=== PATIENT | male | born 1965 | race American Indian/Alaskan Native ===

== ENCOUNTER 2019-01-24 20:32 | Emergency (ER) | payer SELFPAY ==
[2019-01-24 20:39] VITALS: BMI 24.3
[2019-01-24 20:49] VITALS: RESP 18; TEMP 98.3
--- NOTE | 2019-01-24 21:08 | ED PDOC ---
Arrival/HPI - General Chief Complaint: Substance Abuse Time Seen by Provider: 01/24/19 20:33 Historian: EMS - History of Present Illness Narrative History of Present Illness (Text): 01/24/19 20:50 Vic Meredith is a 53 year old male, whose past medical history includes diabetes, who presents to the emergency department brought in by EMS for substance abuse. As per EMS, patient was found outside, states patient has a history of substance abuse and possibly used PCP this evening. Patient refusing to answer questions. Limited HPI and ROS secondary to patient's altered mental status. Symptom Onset: Gradual Symptom Course: Unchanged Activities at Onset: Light Context: Street Past Medical History - Provider Review Nursing Documentation Reviewed: Yes - Psychiatric Hx Substance Use: Yes Family/Social History - Physician Review Nursing Documentation Reviewed: Yes Family/Social History: Unknown Family HX Smoking Status: Unknown If Ever Smoked Hx Alcohol Use: Yes Hx Substance Use: Yes Allergies/Home Meds Allergies/Adverse Reactions: Allergies No Known Allergies Allergy (Verified 01/24/19 20:40) Home Medications: Home Meds Medication Instructions Recorded Confirmed Unobtainable 01/25/19 01/25/19 Review of Systems - Review of Systems Systems not reviewed;Unavailable: Altered Mental Status Physical Exam Vital Signs Reviewed: Yes Vital Signs Temp Pulse Resp BP Pulse Ox 01/24/19 20:48 98.3 F 90 18 133/78 98 Temperature: Afebrile Blood Pressure: Normal Pulse: Regular Respiratory Rate: Normal Appearance: Positive for: Well-Appearing, Non-Toxic, Comfortable Pain Distress: None Finger Stick Blood Glucose: 94 - Systems Exam Head: Present: Atraumatic, Normocephalic Pupils: Present: PERRL Extroacular Muscles: Present: EOMI Conjunctiva: Present: Normal Mouth: Present: Moist Mucous Membranes Neck: Present: Normal Range of Motion Respiratory/Chest: Present: Clear to Auscultation, Good Air Exchange. No: Respiratory Distress, Accessory Muscle Use Cardiovascular: Present: Regular Rate and Rhythm, Normal S1, S2. No: Murmurs Abdomen: No: Tenderness, Distention, Peritoneal Signs Back: Present: Normal Inspection Upper Extremity: Present: Normal Inspection. No: Cyanosis, Edema Lower Extremity: Present: Normal Inspection. No: Edema Neurological: Present: GCS=15, CN II-XII Intact, Speech Normal Skin: Present: Warm, Dry, Normal Color. No: Rashes Medical Decision Making ED Course and Treatment: 01/24/19 20:50 Impression: 53 year old male brought in for possible substance abuse. Plan: -- EKG -- Labs, alcohol level -- Urinalysis, urine drug screen -- Reassess and disposition Prior Visits: Notes and results from previous visits were reviewed. Progress Notes: 01/24/19 21:20 Pt uncooperative with staff, becoming agitated. Code Howe called. Pt placed in 4 points and Ativan ordered. 01/24/19 23:22 Reviewed EKG, NSR at [address] Non-specific ST/T wave changes. - RAD Interpretation Radiology Orders: 01/24/19 20:59 HEAD W/O CONTRAST [CT] Stat - Scribe Statement The provider has reviewed the documentation as recorded by the Scribmonica Craig Provider Scribe Attestation: All medical record entries made by the Scribe were at my direction and personally dictated by me. I have reviewed the chart and agree that the record accurately reflects my personal performance of the history, physical exam, medical decision making, and the department course for this patient. I have also personally directed, reviewed, and agree with the discharge instructions and disposition. Disposition/Present on Arrival - Present on Arrival Any Indicators Present on Arrival: No History of DVT/PE: No History of Uncontrolled Diabetes: No Urinary Catheter: No History of Decub. Ulcer: No History Surgical Site Infection Following: None - Disposition Have Diagnosis and Disposition been Completed?: Yes Diagnosis: Substance abuse Disposition: HOME/ ROUTINE Disposition Time: 06:35 Patient Problems: Current Active Problems Problem Status Onset Substance abuse Acute Condition: GOOD Discharge Instructions (ExitCare): Drug Abuse and Drug Addiction (DC) Forms: [employer] ([place])
[2019-01-24 23:26] LABS: BASO # 0.02 K/mm3 (0.0-2.0); BASO % 0.5 % (0.0-3.0); EOS # 0.1 (0.0-0.7); EOS % 1.3 % (1.5-5.0); HEMOGLOBIN 11.5 g/dL (14.0-18.0); LYMPH # 0.8 (1.2-3.4); LYMPH % 20.8 % (22.0-35.0); MEAN CELL VOLUME 83.3 fl (80.0-105.0); MEAN CORPUSCULAR HEMOGLOBIN 28.6 pg (25.0-35.0); MEAN CORPUSCULAR HGB CONC 34.3 g/dl (31.0-37.0); MEAN PLATELET VOLUME 10.3 fl (7.0-11.0); MONO # 0.6 (0.1-0.6); RBC 4.02 10^6/uL (3.5-6.1); RED CELL DISTRIBUTION WIDTH 13.5 % (11.5-14.5); WHITE BLOOD COUNT 3.9 10^3/uL (4.5-11.0)
[2019-01-24 23:35] LABS: ACETAMINOPHEN < 10.0 ug/ml (10.0-20.0); SALICYLATE < 1 mg/dL (2.0-20.0)
[2019-01-24 23:36] LABS: ALB/GLOB RATIO 1.1 (1.1-1.8); ALT/SGPT 14 U/L (7-56); AST/SGOT 23 U/L (17-59); BLOOD UREA NITROGEN 12 mg/dL (7-21); CALCIUM 9.1 mg/dL (8.4-10.5); GFR NON-AFRICAN AMERICAN > 60
[2019-01-24 23:39] LABS: URINE BILIRUBIN SMALL (NEGATIVE); URINE BLOOD TRACE-LYSED (NEGATIVE); URINE GLUCOSE (UA) NEGATIVE (NEGATIVE); URINE LEUKOCYTE ESTERASE NEGATIVE Leu/uL (NEGATIVE); URINE PROTEIN 30 mg/dL (<30 mg/dL)
[2019-01-24 23:48] LABS: URINE APPEARANCE CLEAR (CLEAR); URINE COLOR YELLOW (YELLOW)
[2019-01-25] LABS: BARBITURATES, UR NEGATIVE (NEGATIVE); BENZODIAZEPINES, UR NEGATIVE (NEGATIVE); OPIATES, UR NEGATIVE (NEGATIVE); PHENCYCLIDINE, UR POSITIVE (NEGATIVE)
[2019-01-25 00:04] LABS: URINE EPITHELIAL CELLS 0 - 2 /hpf (0-5); URINE RBC 0 - 2 /hpf (0-2); URINE WBC 0 - 2 /hpf (0-6)
[2019-01-25 00:05] LABS: URINE AMORPHOUS SEDIMENT FEW /hpf
[2019-01-25 06:55] VITALS: BP 115/76; PULSE 80; O2SAT 100
--- NOTE | 2019-01-25 17:38 | CARD ---
APPROVED REPORT Date of service: 01/24/2019 EKG Measurement Heart [id number] <Conclusion> Normal sinus rhythm Nonspecific T wave abnormality Abnormal ECG
== END 2019-01-25 07:20 | disposition home or self-care (01) ==
LOC: ED 20:32
DX: F19.10 Other psychoactive substance abuse, uncomplicated (principal)
CPT/HCPCS: 80053; 81001; 82550; 82948; 83735; 85025; 93005; 96372; 99284; G0480; J2060